=== PATIENT | female | born 1970 ===

== ENCOUNTER 2024-10-22 14:52 | Outpatient (REF) | payer MEDICAID, SELFPAY ==
--- NOTE | ~2024-10-22 | XR_ITS ---
EXAMINATION: XR LUMBOSACRAL SPINE CLINICAL INFORMATION: One week of low back pain, no history of trauma COMPARISON: None available. TECHNIQUE: AP and lateral views. FINDINGS: Multilevel endplate sclerosis marginal osteophyte formation and decreased disc height throughout the axial skeleton involving mostly the lower thoracic spine and lower lumbar spine segments. No acute cortical disruption or gross malalignment. No lytic or blastic lesions XR/XR lumbar spine 2-3V IMPRESSION: Multilevel spondylosis without acute fracture or listhesis. Electronically signed by: David Malone MD 10/22/2024 03:40 PM EDT
--- NOTE | ~2024-10-22 | XR_ITS ---
EXAMINATION: X-ray knee is, bilaterally.). CLINICAL INFORMATION: Chronic pain. TECHNIQUE: AP view in standing position both knees. Oblique lateral and sunrise views. COMPARISON: None FINDINGS: Joint space narrowing involving mostly the medial compartment both knees with sclerosis along the articular surface of the medial tibial plateau. Marginal osteophyte formation and medial femoral condyle and medial tibial plateau bilaterally. No acute cortical disruption or gross malalignment. No suprapatellar bursa joint effusion. No lytic or blastic lesions. XR/XR Knee Daren 4V IMPRESSION: Moderate medial compartment osteoarthrosis, bilaterally. Electronically signed by: David Malone MD 10/22/2024 03:42 PM EDT
--- OUTSIDE RECORDS SUMMARY | 2024-10-22 16:26 | XMS_ITS | Encounter Summary ---
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 Role Phone Unavailable Primary Care Provider Unavailabl e Encounter Details Date Type Department Care Team (Latest Contact Info) Description 10/22/2024 Travel Social History Tobacco Use Types Packs/Day Years Used Date Smoking Tobacco: Never Passive Smoke Exposure: Never Smokeless Tobacco: Never Alcohol Use Standard Drinks/Week Comments Never 0 (1 standard drink = 0.6 oz pur e alcohol) Comments Unknown Sex and Gender Information Value Date Recorded Sex Assigned at Female 10/22/2024 2:14 PM EDT Legal Sex Female 2:12 PM EDT Gender Identity Female 10/22/2024 2:14 PM EDT Sexual Orientation Straight 10/22/2024 2: 14 PM EDT documented as of this encounter Plan of Treatment Not on file documented as of this encounter Visit Diagnoses Not on filedocumented in this encounter
== END 2024-10-22 14:53 | disposition home or self-care (01) ==
LOC: HO.HHCX 14:52
PROVIDERS: Visit Provider Internal Medicine Geriatric Medicine
DX: M25.561 Pain in right knee (principal); M25.562 Pain in left knee; G89.29 Other chronic pain; M54.50 Low back pain, unspecified
CPT/HCPCS: 72100; 73564

== ENCOUNTER → 2024-10-22 14:54 | Outpatient (BNV) | payer MEDICAID, SELFPAY | PROVIDERS: Visit Provider Radiology Diagnostic Radiology | DX: M17.0 Bilateral primary osteoarthritis of knee (principal); M47.817 Spondylosis without myelopathy or radiculopathy, lumbosacral region | CPT/HCPCS: 72100; 73564 ==